=== PATIENT | female | born 1970 | race Caucasian/White ===

== ENCOUNTER 2020-11-16 13:10 | Inpatient (IN) | payer BC ==
[~2020-11-16] VITALS: Ht 170.2 cm; Wt 77.1 kg
[2020-11-16 14:04] LABS: Basophils # (auto) 0 10 ^3/uL (0-0.2); Basophils % (auto) 0.7 % (0.0-2.0); Eosinophils # (auto) 0.3 10 ^3/uL (0-0.8); Eosinophils % (auto) 4.2 % (0.0-7.0); Lymphocytes # (auto) 1.5 10 ^3/uL (0.4-5.4); Lymphocytes % (auto) 22.3 % (10.0-50.0); Mean Corpuscular Hemoglobin 27.9 pg (28.0-32.0); Mean Corpuscular Hgb Conc. 31.8 g/dL (32.0-36.0); Mean Corpuscular Volume 87.9 fL (80.0-100.0); Monocytes # (auto) 0.8 10 ^3/uL (0-1.3); Monocytes % (auto) 11.3 % (0.0-12.0); Neutrophils # (auto) 4.2 10 ^3/uL (1.6-8.6); Neutrophils % (auto) 61.5 % (37.0-80.0); Nucleated Red Blood Cells % 0.1 %; Red Blood Cells 2.27 10^6/uL (4.0-5.20); Red Cell Distribution Width 16.6 % (11.8-14.3); White Blood Cell 6.8 10^3/uL (4.4-10.8)
[2020-11-16 14:05] LABS: Hemoglobin 6.3 g/dL (12.2-16.2)
[2020-11-16 14:08] LABS: INR 1.02 (0.9-1.15); Partial Thromboplastin Time 22.2 sec (23.6-33.0)
[2020-11-16 14:29] LABS: Albumin 3.6 g/dL (3.4-5.0); BUN/Creatinine Ratio 8.9; Calcium 8.7 mg/dL (8.5-10.1); Potassium 3.6 mmol/L (3.5-5.1)
[2020-11-16 14:31] LABS: Bilirubin, Total 0.4 mg/dL (0.2-1.0); Total Protein 7.7 g/dL (6.4-8.2)
[2020-11-16 16:20] VITALS: BP 127/64
[2020-11-16 16:35] VITALS: BP 138/69
[2020-11-16] MEDS ORDERED: MORPHINE SULFATE INJECTION 2 MG/ML SYRG IV PRN (16:45)
[2020-11-16] MEDS ORDERED: NITROGLYCERIN 0.4 MG SL TAB SL PRN (16:45)
[2020-11-16 18:53] LABS: Folate (Folic Acid) > 24.00 ng/mL (5.38-24)
[2020-11-16 19:11] LABS: % Iron Saturation 1.8 % (15-50)
[2020-11-16 20:39] VITALS: BP 137/69
[2020-11-16 22:11] VITALS: BP 139/81
[2020-11-16 22:26] VITALS: BP 144/81
[2020-11-17 01:15] VITALS: BP 144/79
[2020-11-17 02:54] LABS: Basophils # (auto) 0.1 10 ^3/uL (0-0.2); Eosinophils # (auto) 0.2 10 ^3/uL (0-0.8); Lymphocytes # (auto) 1.3 10 ^3/uL (0.4-5.4); Monocytes # (auto) 0.8 10 ^3/uL (0-1.3)
[2020-11-17 02:57] LABS: Eosinophils % (auto) 2.3 % (0.0-7.0); Hematocrit 32.3 % (36.0-46.0); Hemoglobin 10.5 g/dL (12.2-16.2); Lymphocytes % (auto) 16.6 % (10.0-50.0); Mean Corpuscular Hemoglobin 28.5 pg (28.0-32.0); Mean Corpuscular Hgb Conc. 32.6 g/dL (32.0-36.0); Mean Corpuscular Volume 87.3 fL (80.0-100.0); Monocytes % (auto) 10.6 % (0.0-12.0); Neutrophils # (auto) 5.5 10 ^3/uL (1.6-8.6); Neutrophils % (auto) 69.5 % (37.0-80.0); Nucleated Red Blood Cells % 0.2 %; Red Blood Cells 3.69 10^6/uL (4.0-5.20); Red Cell Distribution Width 15.1 % (11.8-14.3); White Blood Cell 7.9 10^3/uL (4.4-10.8)
[2020-11-17 03:20] LABS: INR 1.05 (0.9-1.15)
[2020-11-17 04:28] VITALS: BP 142/88
[2020-11-17] MEDS ORDERED: DOCUSATE SOD 100 MG CAP PO PRN (07:45)
[2020-11-17] MEDS ORDERED: HYDROcodone-ACET 5/325MG TAB PO PRN (07:45)
[2020-11-17] MEDS ORDERED: SODIUM FERR GLUC 62.5MG/5ML 125 MG in SODIUM CHL 0.9% 100 ML IV ONE (07:45)
[2020-11-17] MEDS ORDERED: ALUM & MAG HYDROX-SIMETH LIQ(MAALOX) 30 ML PO PRN (07:45)
[2020-11-17] MEDS ORDERED: LORazepam 0.5 MG TAB PO PRN (07:45)
[2020-11-17] MEDS ORDERED: NITROGLYCERIN 0.4 MG SL TAB SL PRN (07:45)
[2020-11-17] MEDS ORDERED: ONDANSETRON HCL 4 MG/2 ML VIAL IV PRN (07:45)
[2020-11-17] MEDS ORDERED: NIFEdipine ER 30 MG TAB PO ONE (07:45)
[2020-11-17] MEDS ORDERED: MORPHINE SULFATE INJECTION 2 MG/ML SYRG IV PRN ×2 (07:45)
[2020-11-17] MEDS ORDERED: LEVOTHYROXINE SODIUM 25 MCG TAB PO ONE (07:45)
[2020-11-17] MEDS ORDERED: SODIUM CHLORIDE 0.9% 1,000 ML IV SCH (07:45)
[2020-11-17] MEDS ORDERED: FAMOTIDINE (10MG/ML) 2ML VL IV SCH (10:00)
[2020-11-17] MEDS ORDERED: SODIUM FERR GLUC 62.5MG/5ML 125 MG in SODIUM CHL 0.9% 100 ML IV SCH (12:00)
[2020-11-17] MEDS ORDERED: IRON SUCROSE COMPLEX 200 MG in SODIUM CHL 0.9% 100 ML IV SCH (12:00)
[2020-11-17] MEDS ORDERED: FERROUS SULFATE 325mg EC TAB PO SCH (14:00)
[2020-11-17] MEDS ORDERED: ATORVASTATIN 20 MG TAB PO SCH (22:00)
[2020-11-18] MEDS ORDERED: LEVOTHYROXINE SODIUM 25 MCG TAB PO SCH (07:00)
[2020-11-18] MEDS ORDERED: NIFEdipine ER 30 MG TAB PO SCH (10:00)
== END 2020-11-17 04:50 | disposition left against medical advice (07) | DRG 761 ==
LOC: ER 13:10 → OVERFLOW 16:42
PROVIDERS: ADMIT Hospitalist; ATTEND Internal Medicine Pulmonary Disease
PROC: 30233N1 Transfusion of Nonautologous Red Blood Cells into Peripheral Vein, Percutaneous Approach (ICD-10-PCS; principal; 2020-11-16)
DX: D25.9 Leiomyoma of uterus, unspecified (principal); D50.0 Iron deficiency anemia secondary to blood loss (chronic); E03.9 Hypothyroidism, unspecified; E78.5 Hyperlipidemia, unspecified; F17.200 Nicotine dependence, unspecified, uncomplicated; I10 Essential (primary) hypertension; E66.3 Overweight; Z20.822 Contact with and (suspected) exposure to COVID-19; Z53.29 Procedure and treatment not carried out because of patient's decision for other reasons; Z82.49 Family history of ischemic heart disease and other diseases of the circulatory system; Z83.3 Family history of diabetes mellitus; Z68.26 Body mass index [BMI] 26.0-26.9, adult
CPT/HCPCS: 36415; 76830; 76856; 80053; 82607; 82728; 82746; 83036; 83540; 83550; 83615; 85025; 85045; 85384; 85610; 85730; 86850; 86900; 86901; 86920; 99291; G0378